=== PATIENT | female | born 1995 | race Caucasian/White ===

== ENCOUNTER 2017-11-24 22:38 | Emergency (ER) | payer OTHER ==
[2017-11-25] MEDS: DIPHTH/TET/ACEL PERTUSS (ADULT) 0.5 ML VIAL IM* (01:46)
[2017-11-25] MEDS: HYDROCODONE/APAP (5/325) TAB PO (01:47)
[2017-11-25] MEDS: SILVER SULFADIAZINE 1% 25 GM CR TOP (01:51)
== END 2017-11-25 02:17 | disposition home or self-care (01) ==
LOC: FTE 22:38
DX: T23.231A Burn of second degree of multiple right fingers (nail), not including thumb, initial encounter (principal); X12.XXXA Contact with other hot fluids, initial encounter; Y92.9 Unspecified place or not applicable; Z23 Encounter for immunization
CPT/HCPCS: 16020; 90471; 90715; 99284-25